=== PATIENT | male | born 1990 | race Caucasian/White ===

== ENCOUNTER 2018-05-07 11:24 | Emergency (ER) | payer BC ==
[2018-05-07 11:48] VITALS: TEMP 97.8
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
[2018-05-07] MEDS ORDERED: KETOROLAC TROMETHAMINE INJ 60 MG/2 ML VIAL IM ONE (13:06)
[2018-05-07] MEDS ORDERED: HYDROcodone 7.5MG/APAP 325MG 1 EA TAB PO ONE (13:06)
[2018-05-07 13:44] VITALS: BP 139/90; O2SAT 100
== END 2018-05-07 13:58 | disposition home or self-care (01) ==
LOC: ER 11:24
DX: S32.049A Unspecified fracture of fourth lumbar vertebra, initial encounter for closed fracture (principal); S20.419A Abrasion of unspecified back wall of thorax, initial encounter; R10.9 Unspecified abdominal pain; Z87.891 Personal history of nicotine dependence; V86.65XA Passenger of 3- or 4- wheeled all-terrain vehicle (ATV) injured in nontraffic accident, initial encounter; Y92.9 Unspecified place or not applicable
CPT/HCPCS: 72125; 74176; J1885